=== PATIENT | female | born 1985 | race Caucasian/White ===

== ENCOUNTER 2017-01-21 09:27 | Emergency (ER) | payer OTHER ==
[2017-01-21 09:32] VITALS: RESP 16
--- NOTE | 2017-01-21 10:00 | EDPHY ---
H & P Stated Complaint: RASH AFTER STARTING CARBAMEXIPINE HPI/ROS: CHIEF COMPLAINT: Rash, possible drug rash HISTORY OF PRESENT ILLNESS: patient is a history of bipolar disorder and has difficulty with her medications. IN the past she was on lithium, this was discontinued greater than 3 weeks ago due to drug rash. She was started on carbamazepine at that time. Over the past 3-6 days she has noted a rash. The rash started at the base of the neck, moved to the hairline, then the axilla and buttocks. It is mildly pruritic. It is localized over the regions of hair. There is no pain to the rash. NO petechiae purpura described. NO fever or chills. NO nausea or vomiting. SHe feels this is related to her carbamazepine, as it is a similar if not same response she had to her lithium. no shortness of breath, swelling of the mouth, lips or tongue. No difficulty swallowing. No history of angioedema.No predictable modifying factors for this. NO other associated complaints or modifying factors. REVIEW OF SYSTEMS: Ten systems reviewed and are negative unless otherwise noted in the HPI EXAMINATION General Appearance: Alert, no distress Head: normocephalic, atraumatic Eyes: Pupils equal and round, no conjunctival pallor or injection ENT, Mouth: Mucous membranes moist . Uvula midline. Airway is patent and without edema or erythema. Neck: Supple and nontender in all planes. She does have a rash at the base of the neck and hair line consistent with a folliculitis/drug rash Respiratory: Lungs are clear to auscultation. No wheezing, rhonchi or crackles. Cardiovascular: Regular rate and rhythm . No murmur. Pulses intact distally. Gastrointestinal: Abdomen is soft and nontender Back: non-tender, no bony abnormalities Neurological: A&O, nonfocal, normal gait Skin: Warm and dry, Dermatitis of the neck, hairline, axilla and gluteal cleft consistent with folliculitis versus drug rash. NO petechiae or purpura. Extremities: Nontender, no pedal edema Psychiatric: Mood and affect normal DIFFERENTIAL DIAGNOSES: Including but not limited to Drug rash, folliculitis, dermatitis NOS MDM: rash of uncertain etiology. It is possible this is related to her carbamazepine. There is no petechiae and there are no purpura. SHe has no urticaria or excoriations. Ordering baseline laboratory studies including a Tegretol level at this time. 11:30 a.m. Rash that is possibly related to her carbamazepine. Her level is therapeutic. Her vital signs were well within normal limits. Her liver function and renal function is normal. Discharged home with 1 dose of Decadron by mouth here. Recommend she hold her carbamazepine for 2 more days until her physician returns from vacation. We did attempt to contact him, but his entire group is out of town at this time. Return to the ER for worsening rash or any fever. SUPERVISION: Independently evaluated Source: Patient Exam Limitations: No limitations - Personal History LMP (Females 10-55): 15-21 Days Ago Current Tetanus/Diphtheria Vaccine: Yes Current Tetanus Diphtheria and Acellular Pertussis (TDAP): Yes - Medical/Surgical History Hx Asthma: No Hx Chronic Respiratory Disease: No Hx Diabetes: No Hx Cardiac Disease: No Hx Renal Disease: No Hx Cirrhosis: No Hx Alcoholism: No Hx HIV/AIDS: No Hx Splenectomy or Spleen Trauma: No Other PMH: PMH- BIPOLAR - Social History Smoking Status: Never smoked Constitutional: Initial Vital Signs Temperature (C) 97.7 F 01/21/17 09:28 Heart Rate 72 01/21/17 09:28 Respiratory Rate 16 01/21/17 09:28 Blood Pressure 110/66 01/21/17 09:28 O2 Sat (%) 96 01/21/17 09:28 O2 Delivery Mode Room Air,Trach Collar Allergies/Adverse Reactions: cefaclor [From Ceclor] Allergy (Verified 01/21/17 09:29) HAY Allergy (Uncoded 01/21/17 09:29) Home Medications: Medication Instructions Recorded Nedra Allergy 01/21/17 Carbamazepine 01/21/17 MIRENA 01/21/17 Spironolactone 01/21/17 Medical Decision Making - Data Points Laboratory Results: Laboratory Results 01/21/17 10:13 01/21/17 10:13 01/21/17 01/21/17 01/21/17 10:13 10:13 10:13 WBC 4.40 10^3/uL 10^3/uL (3.80-9.50) RBC 5.09 10^6/uL 10^6/uL (4.18-5.33) Hgb 15.3 g/dL g/dL (12.6-16.3) Hct 45.4 % % (38.0-47.0) MCV 89.2 fL fL (81.5-99.8) MCH 30.1 pg pg (27.9-34.1) MCHC 33.7 g/dL g/dL (32.4-36.7) RDW 12.2 % % (11.5-15.2) Plt Count 222 10^3/uL 10^3/uL (150-400) MPV 10.6 fL fL (8.7-11.7) Neut % (Auto) 45.4 % % (39.3-74.2) Lymph % (Auto) 39.8 % % (15.0-45.0) Stark % (Auto) 10.5 % % (4.5-13.0) Eos % (Auto) 3.2 % % (0.6-7.6) Baso % (Auto) 0.9 % % (0.3-1.7) Nucleat RBC Rel Count 0.0 % % (0.0-0.2) Absolute Neuts (auto) 2.00 10^3/uL 10^3/uL (1.70-6.50) Absolute Lymphs (auto) 1.75 10^3/uL 10^3/uL (1.00-3.00) Absolute Monos (auto) 0.46 10^3/uL 10^3/uL (0.30-0.80) Absolute Eos (auto) 0.14 10^3/uL 10^3/uL (0.03-0.40) Absolute Basos (auto) 0.04 10^3/uL 10^3/uL (0.02-0.10) Absolute Nucleated RBC 0.00 10^3/uL 10^3/uL (0-0.01) Immature Gran % 0.2 % % (0.0-1.1) Immature Gran # 0.01 10^3/uL 10^3/uL (0.00-0.10) Sodium 137 mEq/L mEq/L (134-144) Potassium 4.6 mEq/L mEq/L (3.5-5.2) Chloride 109 mEq/L mEq/L (97-110) Carbon Dioxide 22 mEq/l mEq/l (22-31) Anion Gap 6 mEq/L L mEq/L (8-16) BUN 14 mg/dL mg/dL (7-23) Creatinine 0.6 mg/dL mg/dL (0.6-1.0) Estimated GFR > 60 Glucose 85 mg/dL mg/dL (70-100) Calcium 9.5 mg/dL mg/dL (8.5-10.4) Total Bilirubin 0.4 mg/dL mg/dL (0.1-1.4) Conjugated Bilirubin 0.4 mg/dL mg/dL (0.0-0.5) Unconjugated Bilirubin 0.0 mg/dL mg/dL (0.0-1.1) AST 26 IU/L IU/L (14-46) ALT 35 IU/L IU/L (9-52) Alkaline Phosphatase 44 IU/L IU/L (38-126) Total Protein 6.8 g/dL g/dL (6.3-8.2) Albumin 4.0 g/dL g/dL (3.5-5.0) Beta HCG, Qual NEGATIVE Carbamazepine 4.6 ug/mL ug/mL (4.0-12.0) Medications Given: Discontinued Medications Sodium Chloride (Ns) 1,000 mls @ 0 mls/hr IV ONCE ONE PRN Reason: Wide Open Stop: 01/21/17 10:17 Last Admin: 01/21/17 10:17 Dose: 1,000 mls Departure - Departure Disposition: Home, Routine, Self-Care Clinical Impression: Drug rash Condition: Good Instructions: Acute Rash (ED) Additional Instructions: Hold carbamazepine for 2 days and discussed with her prescribing physician on the . Referrals: Sanjay Bone MD [Primary Care Provider] - As per Instructions Kenn Wilkinson MD [Non Staff Provider ()] - As per Instructions
[2017-01-21] MEDS ORDERED: NS 1,000 ML IV ONE (10:16)
[2017-01-21 10:22] LABS: % IMMATURE GRANULYOCYTES 0.2 % (0.0-1.1); ABSOLUTE IMMATURE GRANULOCYTES 0.01 10^3/uL (0.00-0.10); ADD DIFF? NO; ADD MORPH? NO; ADD SCAN? NO; ATYPICAL LYMPHOCYTE FLAG 10 (0-99); FRAGMENT RBC FLAG 0 (0-99); HEMATOCRIT 45.4 % (38.0-47.0); HEMOGLOBIN 15.3 g/dL (12.6-16.3); LEFT SHIFT FLG 0 (0-99); LIPEMIA HEMOLYSIS FLAG 80 (0-99); MEAN CELL HEMOGLOBIN 30.1 pg (27.9-34.1); MEAN CELL HEMOGLOBIN CONCENTR. 33.7 g/dL (32.4-36.7); MEAN CELL VOLUME 89.2 fL (81.5-99.8); MEAN PLATELET VOLUME 10.6 fL (8.7-11.7); PLATELET CLUMPS FLAG 10 (0-99); PLATELET COUNT 222 10^3/uL (150-400); RED BLOOD CELL COUNT 5.09 10^6/uL (4.18-5.33); RED CELL DISTRIBUTION WIDTH 12.2 % (11.5-15.2)
[2017-01-21 10:56] LABS: ALANINE AMINOTRANSFERASE 35 IU/L (9-52); ALKALINE PHOSPHATASE 44 IU/L (38-126); ANION GAP 6 mEq/L (8-16); ASPARTATE AMINOTRANSFERASE 26 IU/L (14-46); BILIRUBIN,TOTAL 0.4 mg/dL (0.1-1.4); BILIRUBIN-CONJUGATED 0.4 mg/dL (0.0-0.5); CALCIUM 9.5 mg/dL (8.5-10.4); CARBON DIOXIDE 22 mEq/l (22-31); CHLORIDE 109 mEq/L (97-110); CREATININE 0.6 mg/dL (0.6-1.0); GLOMERULAR FILTRATION RATE > 60; GLUCOSE 85 mg/dL (70-100); POTASSIUM 4.6 mEq/L (3.5-5.2); SODIUM 137 mEq/L (134-144); TOTAL PROTEIN 6.8 g/dL (6.3-8.2)
[2017-01-21 11:29] LABS: TEGRETOL (CARBAMAZEPINE) 4.6 ug/mL (4.0-12.0)
[2017-01-21] MEDS ORDERED: DEXAMETHASONE 1 MG/ML 30 ML BOTTLE PO ONE (11:52)
[2017-01-21] MEDS ORDERED: DEXAMETHASONE 4 MG TAB ONE (12:02)
[2017-01-21 12:25] VITALS: BP 105/62; PULSE 63; TEMP 97.3; O2SAT 94
== END 2017-01-21 12:25 | disposition home or self-care (01) ==
DX: L27.0 Generalized skin eruption due to drugs and medicaments taken internally (principal); T42.1X5A Adverse effect of iminostilbenes, initial encounter